=== PATIENT | female | born 1935 | race Caucasian/White ===

== ENCOUNTER → 2016-12-21 | Outpatient (CLI) | payer MEDICARE ==
[~2016-12-21] MED LIST: ALBU25IPRN NEB; CHLO BUCCAL; DUONI NEB; FLUT1SPR9 EACH NARE; LEVA500T PO; LISI10 PO; LORA-392 PO; MULT-65 PO; ROBIACUDC PO; SYMB160A INH; TEMA15 PO; THEO300T4 PO; UMEC1INH INH; ZOLO50TA PO
[2016-12-21 14:37] LABS: BLOOD GAS BASE EXCESS 5.9 mmol/L (-2-2); BLOOD GAS CARBOXYHEMOGLOBIN 1.6 % (0-4); BLOOD GAS HCO3 30 mmol/L (22-26); BLOOD GAS METHEMOGLOBIN 1.1 % (0-2); BLOOD GAS O2 HGB SATURATION 92 % (90-100); BLOOD GAS OXYGEN CONTENT 14.2 Vol % (12.0-20.0); BLOOD GAS PCO2 41 mmHg (38-42); BLOOD GAS PO2 69 mmHg (61-120); CRITICAL VALUE NO; DRAW SITE RT RADIAL; FIO2 21 %; NUMBER OF ARTERIAL PUNCTURES 1; STAT NO; TEMP CORR TO 98.6; ULNAR PULSE PRESENT
--- NOTE | 2016-12-25 10:19 | RSPPFT ---
DATE OF PROCEDURE: 12/21/16 COMMENTS: Patient was unable to perform DLCO and lung volumes. Spirometry shows FVC of 1.3 predicted 2.4, FEV1 of 0.5 predicted 1.6, FEV1/FVC ratio 39% predicted 80%. IMPRESSION: On the basis of the above, patient has a severe obstructive lung defect.
== END ==
LOC: HRSP 13:35
PROVIDERS: ATTEND Internal Medicine Pulmonary Disease
DX: J44.9 Chronic obstructive pulmonary disease, unspecified (principal)
CPT/HCPCS: 36600; 82805; 94060; 94726; 94729